=== PATIENT | female | born 1950 | race Caucasian/White ===

== ENCOUNTER 2019-02-15 14:01 | Emergency (ER) | payer OTHER ==
[~2019-02-15] VITALS: Ht 175.3 cm; Wt 117.9 kg
[2019-02-15] MEDS ORDERED: LOSARTAN POTAS100 MG PO (14:21)
[2019-02-15 14:31] LABS: URINE BILIRUBIN NEGATIVE (Negative); URINE BLOOD NEGATIVE (Negative); URINE CLARITY CLEAR; URINE COLOR YELLOW; URINE GLUCOSE-RANDOM* NEGATIVE (Negative); URINE KETONES NEGATIVE (Negative); URINE LEUKOCYTES-REFLEX NEGATIVE (Negative); URINE NITRITE-REFLEX NEGATIVE (Negative); URINE PROTEIN (DIPSTICK) NEGATIVE (Negative); URINE UROBILINOGEN 0.2 E.U./dl (0.2-1.0)
[2019-02-15] MEDS ORDERED: XANAX 0.5 MG0.5 MG PO (15:03)
[2019-02-15] MEDS ORDERED: TRAMADOL 50 MG50 MG PO ×2 (15:03→17:28)
[2019-02-15] MEDS ORDERED: ATENOLOL 50MG T50 M1 PO (15:04)
[2019-02-15] MEDS ORDERED: BENADRYL25 MG PO (15:06)
[2019-02-15] MEDS ORDERED: WAL-PHED30 MG PO (15:07)
[2019-02-15] MEDS ORDERED: ZYRTEC10 M4 PO (15:07)
[2019-02-15 15:19] LABS: BASOPHILS 1.4 % (0.0-2.0); EOSINOPHILS 3.2 % (0.0-3.0); HEMATOCRIT 40.8 % (37.0-47.0); HEMOGLOBIN 13.9 gm/dL (12.0-15.0); LYMPHOCYTES 35.1 % (24.0-44.0); MCH 32.2 pg (26.0-34.0); MCHC 34.2 g/dL (28.0-37.0); MONOCYTES 9.5 % (1.0-8.0); PLATELET COUNT 254 thou/uL (150-400); POLYS 50.8 % (36.0-66.0); RBC 4.34 mil/uL (4.20-5.00); RDW 13.2 % (10.5-14.5); WBC 5.8 thou/uL (4.0-11.0)
[2019-02-15 15:25] LABS: ANION GAP 10 mmol/L (7-16); BUN 12 mg/dL (7-18); CALCIUM 9.7 mg/dL (8.5-10.1); CHLORIDE 105 mmol/L (98-107); CO2 28 mmol/L (21-32); CREATININE 0.7 mg/dL (0.6-1.0); GLUCOSE 92 mg/dL (74-106); POTASSIUM 4.1 mmol/L (3.5-5.1); SODIUM 143 mmol/L (136-145)
[2019-02-15 15:36] LABS: LIPASE 113 U/L (73-393); SGOT 16 U/L (15-37); SGPT 21 U/L (30-65); TOTAL BILIRUBIN 0.9 mg/dL (<0.1-1.0); TOTAL PROTEIN 7.8 g/dL (6.4-8.2); TROPONIN-I <0.06 ng/mL (<0.06)
[2019-02-15 17:20] VITALS: BP 152/89
[2019-02-15] MEDS ORDERED: LEVSIN0.125 MG PO (17:28)
[2019-02-15] MEDS ORDERED: PRILOSEC OTC20 MG PO (17:28)
--- NOTE | 2019-02-16 08:02 | EKG ---
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 : 1950 Requested By: Marty Avendano Order Number: [id number] MD: Casey Andersen Measurements Intervals [place] Rate: 76 P: -21 [place]: 207 QRS: -61 QRSD: 126 T: 78 QT: 423 QTc: 476 Interpretive Statements Sinus rhythm Nonspecific IVCD with LAD Left ventricular hypertrophy Compared to ECG 06/06/2004 10:39:29 Electronically Signed On 02-16-2019 8:01:46 CDT by Casey Andersen [email or web address] ��������������������������������������������� <ELECTRONICALLY SIGNED> ���������������������������������������� By: Casey Andersen MD ��������������������������������������������� 02/16/19 0801 1446 144 Casey Andersen MD /GEORGE
== END 2019-02-15 17:41 | disposition home or self-care (01) ==
LOC: ER 14:01
PROVIDERS: Emergency Medicine
DX: N81.10 Cystocele, unspecified (principal); K86.9 Disease of pancreas, unspecified; N39.3 Stress incontinence (female) (male); M54.9 Dorsalgia, unspecified; M79.7 Fibromyalgia; Z87.440 Personal history of urinary (tract) infections; Z88.0 Allergy status to penicillin; Z88.1 Allergy status to other antibiotic agents; Z88.6 Allergy status to analgesic agent